=== PATIENT | male | born 2005 | race Two or more races ===

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

== ENCOUNTER → 2023-01-30 | Outpatient (CLI) | payer BC | END | disposition home or self-care (01) | LOC: LAB 15:28 | DX: I31.9 Disease of pericardium, unspecified (principal) | CPT/HCPCS: 36415; 84484 ==